=== PATIENT | male | born 1965 | race Caucasian/White ===

== ENCOUNTER 2020-09-06 10:41 | Emergency (ER) | payer BC ==
[~2020-09-06] VITALS: Ht 167.6 cm; Wt 113.4 kg
[2020-09-06 10:45] VITALS: BP 138/93
--- NOTE | 2020-09-06 10:52 | NUR ---
Patient ambulated with steady gait to bed 7.
--- NOTE | 2020-09-06 10:59 | NUR ---
55 Y/O MALE C/O HEADACHE, BODY ACHES, CP, SOB, AND INSOMNIA X1 MONTH SINCE 2ND DOSE OF COVID VACCINE 08/05/20. PT SAW PCP LAST WEEK AND WAS GIVEN ALBUTEROL BUT NO FURTHER TESTING. PT STATES 610 PRESSURE CHEST PAIN. PMH:DM, HTN, HLD NKDA
--- NOTE | 2020-09-06 11:01 | NUR ---
DR SAXENA AT BEDSIDE EXAMINING PT
--- NOTE | 2020-09-06 11:11 | NUR ---
LAB AT BEDSIDE
[2020-09-06 11:25] LABS: BASOPHILS # (AUTO) 0.1 K/uL (0.00-0.22); BASOPHILS % (AUTO) 1.2 % (0.0-2.0); EOSINOPHILS # (AUTO) 0.1 K/uL (0-0.4); EOSINOPHILS % (AUTO) 2.2 % (0.0-4.0); HEMATOCRIT 45.1 % (36-52); HEMOGLOBIN 15.1 g/dL (12.0-18.0); LYMPHOCYTES # (AUTO) 1.4 K/uL (2.0-11.5); LYMPHOCYTES % (AUTO) 21.1 % (20.5-51.1); MEAN CORPUSCULAR HEMOGLOBIN 30 pg (27-31); MEAN CORPUSCULAR HGB CONC 34 g/dL (33-37); MONOCYTES # (AUTO) 0.6 K/uL (0.8-1.0); MONOCYTES % (AUTO) 8.9 % (1.7-9.3); NEUTROPHILS # (AUTO) 4.3 K/uL (1.8-7.7); NEUTROPHILS % (AUTO) 66.6 % (42.2-75.2); PLATELET COUNT (AUTO) 110 K/uL (140-450); RED BLOOD CELL COUNT(AUTO) 5.01 MIL/uL (4.20-6.10); RED CELL DISTRIBUTION WIDTH 13.6 % (11.6-13.7); WHITE BLOOD COUNT (AUTO) 6.5 K/uL (4.8-10.8)
--- NOTE | 2020-09-06 11:28 | NUR ---
XRAY AT BEDSIDE
[2020-09-06 11:43] LABS: ANION GAP 14.6 (8-16); CARBON DIOXIDE 25.3 mmol/L (21-32); POTASSIUM 4.9 mmol/L (3.5-5.1); TOTAL BILIRUBIN 0.6 mg/dL (0.0-1.0)
[2020-09-06] MEDS ORDERED: ACETAMINOPHEN EXTRA STRENGTH 500 MG TAB PO ONE (12:10)
[2020-09-06] MEDS ORDERED: KETOROLAC 30 MG/ML VIAL IM ONE (12:10)
[2020-09-06 13:00] VITALS: BP 138/93
--- NOTE | 2020-09-06 13:00 | NUR ---
Patient discharged with v/s stable. Written and verbal after care instructions given and explained. Patient alert, oriented and verbalized understanding of instructions. Ambulatory with steady gait. All questions addressed prior to discharge. ID band removed. Patient advised to follow up with PMD. Opportunity to ask questions provided and answered.
== END 2020-09-06 13:00 | disposition home or self-care (01) ==
LOC: MED 10:41
DX: M79.10 Myalgia, unspecified site (principal); T50.B95A Adverse effect of other viral vaccines, initial encounter; R07.89 Other chest pain; R51.9 Headache, unspecified; E11.9 Type 2 diabetes mellitus without complications; I10 Essential (primary) hypertension; E78.5 Hyperlipidemia, unspecified; Y92.89 Other specified places as the place of occurrence of the external cause
CPT/HCPCS: 36415; 71045; 80053; 83880; 84443; 84484; 85025; 85379; 85651; 86140; 93005; 96372; 99285; J1885; J7030

== ENCOUNTER 2020-09-13 10:52 | Emergency (ER) | payer BC ==
[~2020-09-13] VITALS: Ht 167.6 cm; Wt 111.6 kg
[2020-09-13 11:11] VITALS: BP 142/85
--- NOTE | 2020-09-13 12:25 | NUR ---
PATIENT 55 Y/O MALE BIB SELF FOR C/O L SHOUDER PAIN SINCE FRIDAY. PATIENT STATES PAIN 10/10 AND "FEELS LIKE A PINCHING." PATIENT STATES DOES REPETITIVE MOVEMENTS AT WORK WITH L ARM. PATIENT STATES PAIN RADIATES TO L SIDE OF NECK AND L ARM. PATIENT ABLE TO MOVE ARM LATERALLY AND WITH PAIN. PATIENT CMS INTACT. CAP REFIL <3. MEDHX: DM TYPE II ALLERGIES: NKA
[2020-09-13] MEDS ORDERED: KETOROLAC 30 MG/ML VIAL IM ONE (12:35)
--- NOTE | 2020-09-13 12:35 | NUR ---
SUDEEP MENJIVAR AT BEDSIDE.
--- NOTE | 2020-09-13 12:38 | NUR ---
PATIENT TAKEN TO XRAY VIA W/C.
--- NOTE | 2020-09-13 12:45 | NUR ---
Grabiel lo in [facility] - 09/13/20 at 1246 by MMTHEM Patient ambulated to bed 2. RN evaluating the patient at bedside.
[2020-09-13] MEDS ORDERED: NAPR-1847 PO (14:08)
[2020-09-13] MEDS ORDERED: ACET-8386 PO (14:08)
[2020-09-13 14:15] VITALS: BP 124/89
--- NOTE | 2020-09-13 14:15 | NUR ---
Patient discharged with v/s stable. Written and verbal after care instructions given and explained. Patient alert, oriented and verbalized understanding of instructions. Ambulatory with steady gait. All questions addressed prior to discharge. ID band removed. Patient advised to follow up with PMD. Rx of NAPROXEN, NORCO given. Patient educated on indication of medication including possible reaction and side effects. Opportunity to ask questions provided and answered.
== END 2020-09-13 14:15 | disposition home or self-care (01) ==
LOC: MED 10:52
DX: M19.90 Unspecified osteoarthritis, unspecified site (principal); E11.9 Type 2 diabetes mellitus without complications; I10 Essential (primary) hypertension; Z79.899 Other long term (current) drug therapy
CPT/HCPCS: 73010; 73030; 96372; 99284; J1885

== ENCOUNTER 2020-09-25 21:36 | Emergency (ER) | payer BC ==
[~2020-09-25] VITALS: Ht 167.6 cm; Wt 111.6 kg
[~2020-09-25 21:36] MED LIST: ACET-8386 PO; NAPR-1847 PO
[2020-09-25 21:42] VITALS: BP 133/80
--- NOTE | 2020-09-25 21:48 | NUR ---
To ED bed 04
--- NOTE | 2020-09-25 22:01 | NUR ---
55/M BIB self c/o numbness and tingling on both of his arms starting around 3pm. Pt denies any pain or discomfort, arm strength equal, speech clear, PERRL, AAOx4. hx: mild arthritis, DM nkda
--- NOTE | 2020-09-25 22:42 | NUR ---
Dr. Garrett examining patient.
[2020-09-25 23:06] LABS: BASOPHILS % (AUTO) 0.5 % (0.0-2.0); EOSINOPHILS # (AUTO) 0.2 K/uL (0-0.4); EOSINOPHILS % (AUTO) 2.6 % (0.0-4.0); HEMATOCRIT 43.3 % (36-52); HEMOGLOBIN 14.6 g/dL (12.0-18.0); MEAN CORPUSCULAR HEMOGLOBIN 30 pg (27-31); MEAN CORPUSCULAR HGB CONC 34 g/dL (33-37); MEAN CORPUSCULAR VOLUME 88.6 fL (80-94); MONOCYTES # (AUTO) 0.5 K/uL (0.8-1.0); MONOCYTES % (AUTO) 5.6 % (1.7-9.3); NEUTROPHILS # (AUTO) 5.9 K/uL (1.8-7.7); NEUTROPHILS % (AUTO) 68.3 % (42.2-75.2); PLATELET COUNT (AUTO) 122 K/uL (140-450); RED BLOOD CELL COUNT(AUTO) 4.88 MIL/uL (4.20-6.10); RED CELL DISTRIBUTION WIDTH 13.3 % (11.6-13.7); WHITE BLOOD COUNT (AUTO) 8.7 K/uL (4.8-10.8)
--- NOTE | 2020-09-25 23:20 | NUR ---
ekg performed at bedside. ekg reads sinus rhythm @ 77
[2020-09-25 23:23] LABS: ANION GAP 15.3 (8-16); CARBON DIOXIDE 26.5 mmol/L (21-32); CREATININE 1.2 mg/dL (0.6-1.3); POTASSIUM 4.8 mmol/L (3.5-5.1)
[2020-09-26 01:00] VITALS: BP 133/80
--- NOTE | 2020-09-26 01:00 | NUR ---
Patient discharged with v/s stable. Written and verbal after care instructions given and explained. Patient verbalized understanding. Ambulatory with steady gait. All questions addressed prior to discharge. Advised to follow up with PMD.
== END 2020-09-26 01:00 | disposition home or self-care (01) ==
LOC: MED 21:36
DX: R20.0 Anesthesia of skin (principal); R53.1 Weakness; E11.9 Type 2 diabetes mellitus without complications; I10 Essential (primary) hypertension; Z79.899 Other long term (current) drug therapy
CPT/HCPCS: 36415; 70450; 71045; 80048; 84484; 85025; 93005; 99285